=== PATIENT | male | born 1960 | race Caucasian/White ===

== ENCOUNTER → 2024-11-24 | Outpatient (CLI) | payer OTHER ==
--- NOTE | 2024-11-26 16:02 | US ---
EXAMINATION TYPE: US abdomen limited DATE OF EXAM: 11/24/2024 COMPARISON: NONE CLINICAL INDICATION: Male, 64 years old with history of R19.03 RLQ swelling, mass lump; Possible he rnias. Three palpable areas RLQ TECHNIQUE: Grayscale with or without color Doppler imaging of the area of hernia concern. Real-time scanning was performed by the digital content coordinator utilizing Valsalva and additional dynamic maneuve rs to assess for hernia. FINDINGS: Assess for hernia at location of: umbilical, spigelian, inguinal 1. Fat containing umbilical hernia measuring 5.9x1.0x4.1 cm. Neck measures 1.3 cm. Area accentuates w ith valsalva maneuver but is not reducible with transducer pressure. 2. No evidence of spigelian hernia at the RLQ. Palpable area of concern may correspond to a caudal ex tension of borderline sized fatty liver measuring 16.9cm. 3. There is a 2.2x1.7x1.6 cm bowel containing inguinal hernia on the right side. Neck measures 0.9 cm . Area is exaggerated with valsalva maneuver and is entirely reducible with transducer pressure. No e vidence of strangulation. Area appears to be lateral and superior to the inferior epigastric vessels favoring an indirect inguinal hernia. IMPRESSION: Ultrasound targeted 3 areas along the right side of the abdomen: 1. Fatty umbilical hernia measuring 5.9 cm extending across a narrow 1.3 cm neck. This accentuates wi th Valsalva but is not reducible with pressure. 2. No spigelian hernia seen by ultrasound. We note some underlying hepatic steatosis and some of the clinically palpable finding may correspond to the inferior right liver margin. 3. Findings suggest a small reducible, bowel containing right indirect inguinal hernia. [facility], , 11/26/2024 3:59 PM
== END | disposition home or self-care (01) ==
LOC: RADUSWWP 07:56
PROVIDERS: ATTEND Family Medicine
DX: K76.0 Fatty (change of) liver, not elsewhere classified (principal); K42.9 Umbilical hernia without obstruction or gangrene
CPT/HCPCS: 76705